=== PATIENT | male | born 1995 | race Caucasian/White ===

== ENCOUNTER 2017-11-29 01:43 | Emergency (ER) | payer OTHER ==
[~2017-11-29] VITALS: Ht 180.3 cm; Wt 69.0 kg
[2017-11-29 02:09] VITALS: BP 126/77; PULSE 82; RESP 20; TEMP 98.4; O2SAT 98
[2017-11-29] MEDS ORDERED: SODIUM CHLOR 0.9% 1000 ML INJ 1,000 ML IV ONE (02:30)
--- NOTE | 2017-11-29 02:45 | PD ---
HPI Chief Complaint: Alcohol/Drug Intoxication Time Seen by Provider: 02:25 Travel History International Travel<30 days: No Contact w/Intl Traveler<30days: No Traveled to known affect area: No History of Present Illness HPI 22-year-old white male presents emergency department under [place] act by PD. Patient was found vomiting outside of a nightclub tonight. Patient is visiting from [place] on spring. The patient was unable to care for himself due to alcohol intoxication and was brought to the ER for his safety. The patient here has no complaints other than being intoxicated. He is no longer nauseous. He is heavily intoxicated. His speech is slurred. Patient denies toxic ingestion. No suicidal homicidal ideation. No trauma. Denies drugs. PFSH Past Medical History Medical History: Denies Significant Hx Immunizations Current: Yes Tetanus Vaccination: Unknown Influenza Vaccination: No Past Surgical History Surgical History: No Previous Surgery Social History Alcohol Use: Yes Tobacco Use: Yes Substance Use: No Allergies-Medications (Allergen,Severity, Reaction): Coded Allergies: No Known Allergies (Unverified , 11/29/17) Reported Meds & Prescriptions Reported Meds & Active Scripts Active No Active Prescriptions or Reported Medications Review of Systems ROS Limitations: Intoxication Physical Exam Narrative GENERAL: Well-nourished, well-developed patient. Smells of emesis. Heavily intoxicated with slurred speech and ataxia SKIN: Warm and dry. HEAD: Normocephalic and atraumatic. EYES: No scleral icterus. No injection or drainage. ENT: No nasal drainage noted. Mucous membranes pink. Airway patent. NECK: Supple, trachea midline. Moves head freely without obvious discomfort. CARDIOVASCULAR: Regular rate and rhythm without murmurs, gallops, or rubs. RESPIRATORY: Breath sounds equal bilaterally. No accessory muscle use. GASTROINTESTINAL: Abdomen soft, non-tender, nondistended. EXTREMITIES: No cyanosis or edema. BACK: Nontender without obvious deformity. No CVA tenderness. NEURO: Patient is alert and oriented to person only. Patient moves extremities but appears in intoxicated and ataxic from alcohol. Nonfocal. Slurred l speech. PSYCH: No delusions. No auditory or visual hallucinations. Data Data Last Documented VS Vital Signs Date Time Temp Pulse Resp B/P (MAP) Pulse Ox O2 Delivery O2 Flow Rate FiO2 11/29/17 02:09 98.4 82 20 126/77 (93) 98 Orders Orders Iv Access Insert/Monitor (11/29/17 02:25) Comprehensive Metabolic Panel (11/29/17 02:25) Drug Screen, Random Urine (11/29/17 02:25) Alcohol (Ethanol) (11/29/17 02:25) Sodium Chlor 0.9% 1000 Ml Inj (Ns 1000 M (11/29/17 02:30) Labs Laboratory Tests Test 11/29/17 02:30 Blood Urea Nitrogen 11 MG/DL Creatinine 1.06 MG/DL Random Glucose 106 MG/DL Total Protein 7.6 GM/DL Albumin 4.3 GM/DL Calcium Level 8.3 MG/DL Alkaline Phosphatase 82 U/L Aspartate Amino Transf (AST/SGOT) 24 U/L Alanine Aminotransferase (ALT/SGPT) 18 U/L Total Bilirubin 0.4 MG/DL Sodium Level 142 MEQ/L Potassium Level 4.0 MEQ/L Chloride Level 106 MEQ/L Carbon Dioxide Level 28.4 MEQ/L Anion Gap 8 MEQ/L Estimat Glomerular Filtration Rate 88 ML/MIN Ethyl Alcohol Level 248 MG/DL [facility] Medical Decision Making Medical Screen Exam Complete: Yes Emergency Medical Condition: Yes Medical Record Reviewed: Yes Interpretation(s) Laboratory Tests Test 11/29/17 02:30 Blood Urea Nitrogen 11 MG/DL Creatinine 1.06 MG/DL Random Glucose 106 MG/DL Total Protein 7.6 GM/DL Albumin 4.3 GM/DL Calcium Level 8.3 MG/DL Alkaline Phosphatase 82 U/L Aspartate Amino Transf (AST/SGOT) 24 U/L Alanine Aminotransferase (ALT/SGPT) 18 U/L Total Bilirubin 0.4 MG/DL Sodium Level 142 MEQ/L Potassium Level 4.0 MEQ/L Chloride Level 106 MEQ/L Carbon Dioxide Level 28.4 MEQ/L Anion Gap 8 MEQ/L Estimat Glomerular Filtration Rate 88 ML/MIN Ethyl Alcohol Level 248 MG/DL Differential Diagnosis Differential diagnoses: Alcohol intoxication, substance abuse, electrolyte abnormality, malingering Narrative Course IV access is obtained. Patient is given a liter bolus of normal saline. Metabolic panel and EtOH level ordered. The patient will be monitored here in the ER until he exhibits sobriety. Diagnosis Primary Impression: URI alcohol intoxication Additional Impression: vomiting Patient Instructions: General Instructions Additional Instructions: Rest. Increase fluids. Avoid alcohol. Avoid illegal substances. Follow-up with [facility] for detox. Do not operate a car or any heavy machinery under the influence of alcohol or drugs. Follow-up with a medical doctor this week. Return to the ER for emergencies Scripts No Active Prescriptions or Reported Meds Disposition: 01 DISCHARGE HOME Condition: Rodolfo Ardon Nov 29, 2017 02:45
[2017-11-29 03:02] LABS: ALBUMIN 4.3 GM/DL (3.4-5.0); ALT (GPT) 18 U/L (12-78); AST (GOT) 24 U/L (15-37); BICARBONATE 28.4 MEQ/L (21.0-32.0); BLOOD UREA NITROGEN 11 MG/DL (7-18); CALCIUM 8.3 MG/DL (8.5-10.1); CHLORIDE 106 MEQ/L (98-107); CREATININE 1.06 MG/DL (0.60-1.30); GLOMERULAR FILTRATION RATE 88 ML/MIN (>89); GLUCOSE,RANDOM 106 MG/DL (74-106); SODIUM (NA) 142 MEQ/L (136-145)
[2017-11-29 03:04] LABS: ALKALINE PHOSPHATASE 82 U/L (45-117); TOTAL BILIRUBIN ADULT 0.4 MG/DL (0.2-1.0); TOTAL PROTEIN 7.6 GM/DL (6.4-8.2)
[2017-11-29 07:00] VITALS: BP 118/74; PULSE 77; RESP 16; TEMP 98; O2SAT 99
== END 2017-11-29 09:22 | disposition home or self-care (01) ==
LOC: NEPD 01:43
DX: F10.129 Alcohol abuse with intoxication, unspecified (principal); Y90.8 Blood alcohol level of 240 mg/100 ml or more; J06.9 Acute upper respiratory infection, unspecified; R11.10 Vomiting, unspecified; Z72.0 Tobacco use
CPT/HCPCS: 80053; 80307; 96360; 99283; J7030